=== PATIENT | male | born 1955 | race Caucasian/White ===

== ENCOUNTER → 2016-07-20 | Outpatient (CLI) | payer SELFPAY | END | disposition home or self-care (01) | LOC: PCVCIMAG 13:00 | PROVIDERS: ATTEND Internal Medicine Cardiovascular Disease | DX: I25.10 Atherosclerotic heart disease of native coronary artery without angina pectoris (principal); E78.5 Hyperlipidemia, unspecified; I10 Essential (primary) hypertension; I25.5 Ischemic cardiomyopathy; R94.31 Abnormal electrocardiogram [ECG] [EKG]; R06.09 Other forms of dyspnea; R07.9 Chest pain, unspecified; Z95.5 Presence of coronary angioplasty implant and graft | CPT/HCPCS: 80061; 93005; 93325; 93351; G0463 ==